=== PATIENT | female | born 1945 | race Caucasian/White ===

== ENCOUNTER 2025-01-05 13:06 | Emergency (ER) | payer MEDICARE, SELFPAY ==
--- OUTSIDE RECORDS SUMMARY | 2025-01-05 13:08 | XMS_ITS | Clinical Summary ---
Author Organization [facility] Address [address] [place] [id number] Care Team Providers Care Wrist Closer Name Role Phone Fran Contreras MD Unavailable Nikole Babcock MD Unavailable + Felton Mg MD Unavailable [phone] Isadora Temple MD Unavailable Nicolasa vailable [facility] Primary Care Provider Unavailabl e Allergies Active Allergy Reactions Criticality Noted Date Comments Atorvastatin Rash 03/19/2013 Possible rash on face? Medications multivitamin (MVI) tabletIndication s:Patellofemoral pain syndrome Take 1 tablet by mouth once daily. 0 10/12/2009 Active Calcium-Cholecal ciferol, D3, (CALCIUM 600 WITH VITAMIN D3) 600 mg(1,500mg) -400 unit capIndications:O steopenia Take 1 Tab by mouth 2 times daily. 0 01/08/2012 Active timoloL maleate (TIMOPTIC) 0.5 % ophthalmic solutionIndicati ons:Primary open angle glaucoma (POAG) of both eyes, mild stage PLACE 1 DROP INTO BOTH EYES ONCE DAILY. TAKE IN THE MORNING. 15 mL 1 03/17/2024 Active latanoprost 0.005 % ophthalmic solutionIndicati ons:Primary open angle glaucoma (POAG) of both eyes, mild stage PLACE 1 DROP INTO BOTH EYES ONCE DAILY IN THE EVENING. 7.5 mL 10/17/2024 Active Active Problems Problem Noted Date Diagnosed Date Primary open angle glaucoma (POAG) of both eyes, moderate stage 12/24/2022 Bilateral pseudophakia 03/20/2021 Pure hypercholesterolemia 12/31/2012 Prediabetes 11/02/2009 Advance Care Plan 08/16/2009 Overview (08/16/2009): Patient has identified Health Care Agent(s): Yes Add Health Care Agents: Yes Health Care Agent(s): Primary Health Care Agent: Juan Thurman Relationship: Secondary Health Care Agent: Cassandra Slaughter Relationship: daughter Conservator: N/A Relationship: Phone: Guardian: N/A Relationship: Phone: Patient has Advanced Care Plan Documents (Health Care Directive, POLST): Yes Advance Care Plan Documents: Health Care Directive completed on 08/16/2009 and scanned into medical record Patient has identified Specific Treatment Preferences: Yes Noted In: Health Care Directive Discussed With: Patient and Health Care Agent Specific Treatment Preferences: a.) No specific limits to treatment preferences identified - assume full treatment. Assessment & Plan (08/16/2009 11:04 AM CDT): Advance Care Planning: Basic Interview Session Advance Care Planning discussion completed with Aleisha Thurman and her Health Care Agent, , Juan Thurman on 08/16/2009 at [facility]. Patient and family provided with: Advance Care Planning Brochure Health Care Directive CPR Fact Sheet Goals and Values: Patient/family identified factors that may influence treatment preferences: Present/past experiences related to illness or : father had heart attack at [facility], was resuscitated, placed on ventilator, was taken off of ventilator, lived 6 weeks in longterm where he . Aleisha's and Juan' family are all local, there are 10 grandchildren whom they enjoy being with very much. Treatment Choices: If Aleisha were suddenly injured and her chances of recovery were 5 out of 100, she WOULD want ongoing life-prolonging treatments such as a ventilator/respirator, feeding tube, etc. Reviewed CPR fact sheet with Aleisha. If she had a sudden event that caused her heart and breathing to stop she WOULD want CPR attempted. Documents Completed During Advance Care Planning Session: Health Care Agents identified. Primary health care agent is Juan; secondary health care agent is daughter, Cassandra Slaughter. Health Care Directive completed and scanned into medical record. Recommendations/Plan: Aleisha was encouraged to continue advance care planning discussions with her health care agents. Aleisha and her health care agents to review Health Care Directive and with her provider at the next office visit. Resources identified during advance care planning session that patient may benefit from are: none at this time. Interviewer: CASSANDRA BOYKIN RN .................... 08/16/2009 11:04 AM 08/16/2009 Screen for colon cancer 02/28/2009 Overview (02/28/2009): Colonoscopy 02/2009 normal repeat in 10 years Osteopenia 10/17/2008 Overview (10/17/2008): Bone density scan- 2008 Other bipolar disorders 10/07/2008 Dermatophytosis of nail 04/10/2006 Unspecified hypothyroidism 07/22/2005 Resolved Problems Problem Noted Date Diagnosed Date Resolved Date Major depressive disorder, r ecurrent episode, unspecified 11/27/2006 10/07/2008 Adjustment disorder with depressed mood 09/01/2006 09/01/2006 DEPRESSION 05/17/2003 04/10/2006 Encounters Date Type Department Care Team Description 01/05/2025 Nurse Triage [facility] [address] [place] [address] Pcp, No Syncope 12/23/2024 2:20 PM CDT Office Visit [facility] [address] [place] [address] Prince Palomo, OD Follow Up (4 Month IOP Ck ) 12/23/2024 Travel 10/15/2024 Refill [facility] [address] [place] [address] Prince Palomo, OD Refill Request (Latanoprost) from Last 3 Months Immunizations Immunization Administration Dates Next Due AMB Influenza, IIV3 (Age >=3 years)(Flu Clinic Only) 02/12/2012,02/22/2011,03/01/2010 Amb Influenza, Inactivated A IIV4 (Age 65+ Years) Preserv Free 02/01/2020 COVID-19 VACCINE SPIKEVAX (M ODERNA 50MCG/0.5ML) 12YO+ PFS 04/01/2024,07/09/2023 COVID-19 vaccine (PackLate.com-Bio NTech 30mcg/0.3mL) 12YO+ BIVALENT PF, MDV 04/01/2022 COVID-19 vaccine (Pfizer-Bio NTech 30mcg/0.3mL) 12YO+ YANET-SUCROSE PF, MDV 08/22/2021 COVID-19 vaccine (Pfizer-Bio NTech 30mcg/0.3mL) PF, MDV 03/07/2021 Influenza, High-dose Inactivated 03/22/2016,03/12,01/18/2014 Influenza, IIV3 (Age 6-35 mos) 02/22/2011 Influenza, IIV3 (Age >=3 years) 02/24/20 13,04/13/2009,03/25/2007,2005 Influenza, Inactivated AIIV4 (Age 65+ Years) Preserv Free 02/14/2023,02/19/2022,02/06/2021 Influenza, Inactivated IIV3 (Age 65+ Years) Preserv Free 04/01/2024,03/02/2019,02/20/2018,2016 Pneumococcal Poly,23-Valent (Pneumovax) 01/08/2012 Pneumococcal conj 13-Valent (Prevnar 13) 03/27/2018 Td (Age >=7 Years) 06/05/1999 Tdap 10/12/2008 Zoster (Zostavax-ZVL, live) 02/13/2012 Family History Medical History Relation Name Comments Cancer-breast Daughter Premenopausal breast cancer Daughter radiation Heart Disease Father Cancer Mother ovarian cancer Other Mother ovarian cancer Genetic Other sister with vannesa ast cancer ~no heart disease , no colon cancer , no osteoporois , Cancer-breast Sister in late 50's. Relation Name Status Comments Daughter Alive Father Maternal Grandfather Maternal Grandmother Mother Other Paternal Grandfather Paternal Grandmother Sister Alive Social History Tobacco Use Types Packs/Day Years Used Date Smoking Tobacco: Former Cigarettes Smokeless Tobacco: Never Tobacco Cessation:Counseling Given: No Comments:quit in 1974 Alcohol Use Standard Drinks/Week Comments Yes 0 (1 standard drink = 0.6 oz pur e alcohol) occassionally PHQ-2 Answer Date Recorded PHQ-2 Score 0 07/12/2018 Financial Resource Strain Answer Date R ecorded Difficulty of Paying Living Expenses Not on file 05/03/2021 Difficulty of Paying Living Expenses Not on file 05/03/2021 Comments No Sex and Gender Information Value Date Recorded Sex Assigned at Not on file Legal Sex Female 5:42 AM AUTOMOTIVE TITLE CLERK Gender Identity Not on file Sexual Orientation Not on file Obstetrics History Para Term AB IAB SAB Ectopic Multiple Livin g Live Births 5 5 4 1 0 0 0 1 5 Date Outcome GA Total Labor Labor//3rd Weight Sex Type Anes PTL Penelope A1 A5 Name Clin Term Term Term Term Last Filed Vital Signs Vital Sign Reading Time Taken Comments Blood Pressure 145/79 01/13/2021 11:22 AM CDT Pulse 98 01/13/2021 11:22 AM CDT Temperature 36.8 C (98.2 F) 01/13/2021 11:22 AM CDT Respiratory Rate 18 01/13/2021 11:22 AM CDT Oxygen Saturation 99% 01/13/2021 11:22 AM CDT Inhaled Oxygen Concentration - - Weight 64 kg (141 lb) 07/11/2020 1:51 PM AUTOMOTIVE TITLE CLERK Height 167.6 cm (5' 6) 05/29/2018 8:25 AM AUTOMOTIVE TITLE CLERK Body Mass Index 22.76 05/29/2018 8:25 AM AUTOMOTIVE TITLE CLERK Plan of Treatment Upcoming Encounters Date Type Department Care Team (Late st Contact Info) Description 04/26/2025 2:30 PM AUTOMOTIVE TITLE CLERK Office Visit [facility] [address] [place] [address] 04/28/2025 2:20 PM AUTOMOTIVE TITLE CLERK Office Visit [facility] [address] [place], [place] [id number] [place] [address] [place] [address] Health Maintenance Due Date Last Done Comments Zoster (shingles) series for age 50+ (2 of 3) 2012 02/13/2012 Medicare Wellness for age 65+ 01/08/2013 01/08/2012, 01/02/2011 Tetanus booster 10/12/2018 10/12/2008, 06/05/1999 RSV vaccine for adults or (1 - 1-dose 75+ series) 2019 BMI (ht and wt on same day) for age 18+ 05/29/2019 05/29/2018, 03/27/2018 Depression screening for age 12+ 06/19/2019 06/19/2018, 05/29/2018, 03/27/2018 COVID-19 vaccine series ( season) 2024 04/01/2024, 07/09/2023, 04/01/2022, Additional history exists Influenza Vaccine (#1) 2025 , 02/14/2023, 02/19/2022, Additional history exists DEXA/DXA scan for age 65+ Completed 10/15/2011, 09/2008 Pneumococcal series for age 50+ Completed 03/27/2018, 01/08/2012 Hepatitis B series for 19+ Aged Out N o longer eligible based on patient's age to complete this topic Procedures Procedure Name Priority Date/Time Associated Diagnosis Comments XR DXA BONE DENSITY 2 SITES AXIAL Routine 10/15/2011 1:47 PM CDT Osteopenia from Last 3 Months or Most Recently Relevant to Health Maintenance Results * XR DEXA BONE DENSITY 2 SITES (10/15/2011 1:47 PM CDT) Anatomical Region Laterality Modality Spine, HIPS, HIPL, HIPR Other Narrative 10/23/2011 7:56 AM CDT Please see scanned document for results of this study.' Procedure Note Abida Weller PA - 10/23/2011 Please see scanned document for results of this study.' us Cassandra Oneill MD DEXA Neli l Result from Last 3 Months or Most Recently Relevant to Health Maintenance Insurance MEDICARE PART B HB ONLY BLUE CROSS MEDICARE ADVANTAGE MR Advance Directives Documents on File Type Date Recorded Patient Advertising Executive Expl anation Healthcare Directive 08/16/2009 Care Teams Wrist Closer Relationship Specialty Start Date End Date [facility] PCP - General 12/17/21 Fran Contreras MD Orthopedics Surgery - Orthopedics 02/23/13 Nikole Babcock MD [address] [place] [address] Dermatology Dermatology 02/23/13 Felton Mg MD [address] [place] [id number] Surgery - Orthopedic 02/23/13 Isadora Temple MD [address] [place] [id number] Ophthalmology Surgery 02/23/13
[2025-01-05 13:11] VITALS: BP 134/71; BP 147/79; PULSE 75; RESP 16; TEMP 36.8; O2SAT 98; BMI 21.5
--- NOTE | 2025-01-05 13:19 | ED.GENADULT ---
HPI - General Adult General Chief complaint: Syncope/Fainted Stated complaint: Fainted, sent by clinic Time Seen by Provider: 01/05/25 13:18 History of Present Illness HPI narrative: Pt reports she fainted around 1100. Pt's heard pt fall. Helped pt up and she fainted again and was unconscious for approx 45 seconds. Did have similar fainting episodes several years ago. Concerned she may have hit head during fall, has a few small abrasions on head/face. Pt states not on blood thinners. Orthostatic BP 's unremarkable in triage. Pt is A&Ox4 in triage, neuros appear intact, gait stable. 79-year-old woman presenting to the emergency department following an episode of fainting. Apparently had been up and fell somewhere in the bathroom striking her face and right head. She does not recall any chest pain or shortness of breath or irregular heartbeats round this time. Apparently had been washing her hair in the kitchen sink. Subsequently got of the bathroom and was combing her hair when she fell and likely passed out. then went to find her and was attempting to get her up and she apparently passed out a for about 45 seconds. No seizure-like activity described. She does have a history of similar events years ago. Apparently also incurred in short order and related to getting in out of the shower. Occurred twice. Evaluation was done on seeing with a an unremarkable EKG per report. Did not have other evaluation done in clinic or ER. She is not complaining of significant headache. Does not feel lightheaded currently. Orthostatics upon triage were unremarkable and without symptoms. No abdominal pain. Related Data Home Medications ?Medication ?Instructions ?Recorded ?Confirmed latanoprost 0.005 % eye drops 1 drp ophthalmic (eye) QPM 01/05/25 01/05/25 timolol maleate 0.5 % eye drops drp ophthalmic (eye) 01/05/25 Allergies Allergy/AdvReac Type Severity Reaction Status Date / Time No Known Drug Allergies Allergy Verified 01/05/25 14:36 Review of Systems Status of ROS: Reports: 6 or more systems reviewed and unremarkable except as noted in History and below PFSH PFS Social History Smoking Status: Former smoker How often do you have a drink containing alcohol: never AUDIT-C Alcohol total score: 0 Non-prescribed substance use: denies use service: No Exam Narrative: Exam Narrative: Pleasant. NAD. Breathing easily. Lungs are clear. Heart in regular rate and rhythm. Extremities are well perfused without edema. She is moving all extremities without difficulty, with good strength. No injury noted to extremities. No pain to palpation over chest or abdomen. Abdomen is soft. Back nontender without deformity. Neck is supple and nontender. Light subcentimeter superficial cut across the bridge of her nose consistent with her eyeglasses. Also light abrasion at the right mormon area. Subtle bruising in this area. No crepitus or step-offs. Large bubble over the dorsum of the right index finger starting at the PIP moving distally. Nontender not inflamed. This level is noted to be present for quite some time. They are interested in potential drainage. Const: Vital Signs, click to edit/add: Vital Signs - 24 hr 01/05/25 13:11 01/05/25 14:00 01/05/25 14:37 Temperature 98.3 F Pulse Rate Pulse Rate [Pulse Oximeter] 75 Respiratory Rate 16 13 23 Blood Pressure Blood Pressure [Ri ght Forearm] 147/79 H Blood Pressure [Ri ght Upper Arm] 134/71 Pulse Oximetry 98 Oxygen Delivery Me thod Room Air 01/05/25 14:38 01/05/25 14:39 Temperature Pulse Rate 71 76 Pulse Rate [Pulse Oximeter] Respiratory Rate 15 12 Blood Pressure 140/70 H Blood Pressure [Ri ght Forearm] Blood Pressure [Ri ght Upper Arm] Pulse Oximetry 95 100 Oxygen Delivery Me thod Documenting provider has reviewed patient's vital signs: yes Course Vital Signs Vital signs: Initial Vital Signs Temperature 98.3 F 01/05/25 13:11 Temperature Source Temporal Artery Scan 01/05/25 13:11 Pulse Rate 75 01/05/25 13:11 Respiratory Rate 16 01/05/25 13:11 Blood Pressure 134/71 01/05/25 13:11 Blood Pressure Mean 92 01/05/25 13:11 Blood Pressure Position Sitting 01/05/25 13:11 Pulse Oximetry 98 01/05/25 13:11 Oxygen Delivery Method Room Air 01/05/25 13:11 Vital Signs Temperature 98.3 F 01/05/25 13:11 Pulse Rate 75 01/05/25 13:11 Respiratory Rate 16 01/05/25 13:11 Blood Pressure 134/71 01/05/25 13:11 Pulse Oximetry 98 01/05/25 13:11 Oxygen Delivery Method Room Air 01/05/25 13:11 Temperature 98.3 F 01/05/25 13:11 Pulse Rate 76 01/05/25 14:39 Respiratory Rate 12 01/05/25 14:39 Blood Pressure 140/70 H 01/05/25 14:38 Pulse Oximetry 100 01/05/25 14:39 Oxygen Delivery Method Room Air 01/05/25 13:11 Medications Administered Medications: Discontinued Medications Generic Name Dose Route Start Last Admin Trade Name Donyq PRN Reason Stop Dose Admin Sodium Chloride 500 mls @ 500 mls/hr 01/05/25 13:35 01/05/25 15:23 0.9 % Sodium Chloride 500 Ml IV 01/05/25 14:34 Infused .Q1H ONE Infusion Medical Decision Making MDM Narrative Medical decision making narrative: Did discuss with Neurology on-call. Suspect more of an arrhythmia but would support head and neck imaging with concerns of potential vascular compromise. I wonder if this might have been more of orthostatic/head positioning/vasovagal type event. Orthostatics look good though today. Will be monitoring on awning frame maker and oximetry. Look for any indication of cardiac injury. Normal saline bolus. Standard labs. White count is mildly elevated. Shortly before departure finally did obtain urinalysis with 1+ ketones. Repeat troponin is negative. EKG as noted below is unremarkable. Did review CT imaging. Radiology over-read of head imaging while in prelim did not show evidence of injury or significant stenotic changes/occlusion. As requested did return to evacuate did what I think is a synovial cyst on her left index finger. Discussed risk and benefit. After cleansing with Betadine placed an 18 gauge and extracted clear sticky gelatinous material ultimately expressed through the puncture site. Wrapped with antibiotic ointment and light pressure dressing. No events on monitoring during time in the emergency department. Ambulating without difficulty. Stable vitals. See patient discharge plan for further discussion Stay well-hydrated. Take care transitions. Please follow-up with your primary care provider this next week if possible. Would consider further cardiac evaluation with possible rhythm monitoring and/or cardiac echo. Change dressing on your finger daily over this next week. Watch for spreading redness after a couple of days, marked increase in pain or swelling with redness. Lab Data Labs: Lab Results 01/05/25 01/05/25 01/05/25 Range/Units 13:35 13:44 13:50 WBC 12.98 H (4.50-11.00) K/uL RBC 4.93 (4.00-5.20) m/uL Hgb 12.8 (12.0-16.0) gm/dL Hct 39.7 (33.0-51.0) % MCV 81 (80-100) fL MCH 26 (26-34) pg MCHC 32 (32-36) gm/dL RDW Coeff of Clare 13.2 (11.5-15.5) % Plt Count 250 (140-440) K/uL Neut % (Auto) 81.4 H (42.0-72.0) % Lymph % (Auto) 9.2 L (20-44) % [place] % (Auto) 8.5 (0.0-11.0) % Eos % (Auto) 0.6 (0.0-7.0) % Baso % (Auto) 0.2 (0.0-3.0) % Neut # (Auto) 10.60 H (1.7-7.0) K/uL Lymph # (Auto) 1.20 (0.90-2.90) K/uL Belmont # (Auto) 1.10 H (0.00-0.90) K/UL Eos # (Auto) 0.10 (0.00-0.50) K/uL Baso # (Auto) 0.00 (0.00-0.30) K/uL Abs Immat Gran (auto) 0.00 (0.00-0.30) K/uL Imm/Tot Granulo (auto) 0.1 % Sodium 135 (135-149) mmol/L Potassium 4.2 (3.6-5.1) mmol/L Chloride 100 (96-114) mmol/L Carbon Dioxide 28 (20-32) mmol/L Anion Gap 7 (7-15) mEq/L BUN 12 (7-30) mg/dL Creatinine 0.8 (0.5-1.5) mg/dL Estimated Creat Clear 42.00 Estimated GFR 74 ml/min Glucose 112 (60-115) mg/dL Calcium 9.8 (8.4-10.6) mg/dL Troponin I < 0.01 (0.01-0.04) ng/mL NT-Pro-B Natriuret Pep 147 (See Note) pg/mL Urine Color (Yellow) Urine Appearance (Clear) Urine pH (5.0-8.5) Ur Specific Hustler (1.000-1.030) Urine Protein (Negative) Urine Glucose (UA) (Negative) Urine Ketones (Negative) Urine Blood (Negative) Urine Nitrite (Negative) Urine Bilirubin (Negative) Urine Urobilinogen (0.2-1.0) Ur Leukocyte Esterase (Negative) Urine RBC (0-2) Urine WBC (0-5) Ur Squamous Epith Cells (None-Few) Urine Bacteria (None) POC Creatinine 0.9 (0.6-1.3) mg/dl POC Troponin I 0.00 L (0.01-0.04) ng/ml 01/05/25 01/05/25 Range/Units 15:57 16:02 WBC (4.50-11.00) K/uL RBC (4.00-5.20) m/uL Hgb (12.0-16.0) gm/dL Hct (33.0-51.0) % MCV (80-100) fL MCH (26-34) pg MCHC (32-36) gm/dL RDW Coeff of Clare (11.5-15.5) % Plt Count (140-440) K/uL Neut % (Auto) (42.0-72.0) % Lymph % (Auto) (20-44) % [place]mont % (Auto) (0.0-11.0) % Eos % (Auto) (0.0-7.0) % Baso % (Auto) (0.0-3.0) % Neut # (Auto) (1.7-7.0) K/uL Lymph # (Auto) (0.90-2.90) K/uL Belmont # (Auto) (0.00-0.90) K/UL Eos # (Auto) (0.00-0.50) K/uL Baso # (Auto) (0.00-0.30) K/uL Abs Immat Gran (auto) (0.00-0.30) K/uL Imm/Tot Granulo (auto) % Sodium (135-149) mmol/L Potassium (3.6-5.1) mmol/L Chloride (96-114) mmol/L Carbon Dioxide (20-32) mmol/L Anion Gap (7-15) mEq/L BUN (7-30) mg/dL Creatinine (0.5-1.5) mg/dL Estimated Creat Clear Estimated GFR ml/min Glucose (60-115) mg/dL Calcium (8.4-10.6) mg/dL Troponin I (0.01-0.04) ng/mL NT-Pro-B Natriuret Pep (See Note) pg/mL Urine Color Yellow (Yellow) Urine Appearance Clear (Clear) Urine pH 7.5 (5.0-8.5) Ur Specific Hustler 1.010 (1.000-1.030) Urine Protein Negative (Negative) Urine Glucose (UA) Negative (Negative) Urine Ketones 1+ A (Negative) Urine Blood Trace-intact A (Negative) Urine Nitrite Negative (Negative) Urine Bilirubin Negative (Negative) Urine Urobilinogen 0.2 (0.2-1.0) Ur Leukocyte Esterase Negative (Negative) Urine RBC 0-2 (0-2) Urine WBC 0-2 (0-5) Ur Squamous Epith Cells None (None-Few) Urine Bacteria None (None) POC Creatinine (0.6-1.3) mg/dl POC Troponin I 0.00 L (0.01-0.04) ng/ml ECG Data Attestation: I personally reviewed and interpreted this ECG as follows: (Sinus rhythm. Rate of 72. Do not appreciate significant ischemic changes.) Discharge Plan Discharge Clinical Impression: Syncope, Closed head injury, Synovial cyst of hand, Contusion Patient Disposition: Home w/ Parent or Adult Condition: Improved Additional Instructions: Stay well-hydrated. Take care transitions. Please follow-up with your primary care provider this next week if possible. Would consider further cardiac evaluation with possible rhythm monitoring and/or cardiac echo. Change dressing on your finger daily over this next week. Watch for spreading redness after a couple of days, marked increase in pain or swelling with redness. Prescriptions: No Action latanoprost 0.005 % drops 1 drp ophthalmic (eye) QPM timolol maleate 0.5 % drops ophthalmic (eye) Follow Up/Referrals: Jan Nina MD [Primary Care Provider, Family Practice] Stand Alone Forms: [employer] Info Instructions
--- NOTE | 2025-01-05 13:43 | CT_ITS ---
Patient: KE LEWIS Facility:?[facility] Patient ID:?[id number] Site Patient ID:?[id number]. Site :?[id number] Study:?CT-Neck Angio Angio WITH 95 CC ISOVUE 370-01/05/2025 2:35:42 PM Ordering Physician:Lyla Almanza Final Report: DATE: 01/05/2025 CLINICAL HISTORY: Patient with syncope. TECHNIQUE: Standard helical CT image acquisition through the head and neck was performed after intravenous contrast bolus enhancement. 2D and 3D MIP images for post- processing were performed and interpreted on an independent workstation and 3D images were permanently archived. COMPARISON: CT same day. FINDINGS: The origins of the great vessels from the aortic arch are patent. The origin of the right vertebral artery is patent. The origin of the left vertebral artery is patent. The common carotid arteries are patent There is no stenosis at the origin of the right internal carotid artery. There is no stenosis at the origin of the left internal carotid artery. The rest of the cervical segments of the internal carotid arteries are patent up to their intracranial segments. The intracranial segments of the internal carotid arteries are patent. The left vertebral artery is dominant. The cervical segments of the vertebral arteries are patent. The intracranial segments of the vertebral arteries are patent. The middle cerebral arteries are normal without aneurysm or proximal occlusion identified. The anterior cerebral arteries are normal without aneurysm or proximal occlusion identified. The anterior communicating artery is well visualized and appears normal. The basilar artery is normal without aneurysm or occlusion. The posterior cerebral arteries are normal without aneurysm or proximal occlusion. There is normal opacification of major intracranial venous structures. The visualized lung apices are unremarkable The thyroid gland is unremarkable. The soft tissues of the neck are unremarkable. There are degenerative changes in the cervical spine. IMPRESSION: Normal CT angiogram of the head and neck. Please note that all CT scans at this facility use dose modulation, iterative reconstruction, and/or weight-based dosing when appropriate to reduce radiation dose to as low as reasonably achievable. Dictated by Marquita Hughes MD @ 01/05/2025 3:54:34 PM Signed by:?Marquita Hughes MD @01/05/2025 3:54:34 PM (Electronic Signature)
--- NOTE | 2025-01-05 13:43 | CRLHL7_ITS ---
For Patients: As a result of the Century Cures Act, medical imaging exams and procedure reports are released immediately into your electronic medical record. You may view this report before your referring provider. If you have questions, please contact your health care provider. INDICATION: Recurrent syncope, abrasion on forehead TECHNIQUE: CT head without contrast. COMPARISON: None. FINDINGS: CSF spaces: Within normal limits for age. Brain parenchyma: The alejo-white differentiation is normal. No sign of mass, hemorrhage, or midline shift. Skull base and calvarium: The visualized paranasal sinuses and mastoid air cells demonstrate no acute or significant findings. The visualized orbits are grossly unremarkable. No skull fractures. IMPRESSION: Unremarkable noncontrast head CT. Please note that all CT scans at this facility use dose modulation, iterative reconstruction, and/or weight-based dosing when appropriate to reduce radiation dose to as low as reasonably achievable. Dictated by Richardson Santos MD @ 01/05/2025 2:47:16 PM (Electronically Signed)
[2025-01-05 14:00] VITALS: RESP 13
[2025-01-05 14:06] LABS: Creatinine, Point-of-Care* 0.9 mg/dl (0.6-1.3)
[2025-01-05 14:10] LABS: Hematocrit 39.7 % (33.0-51.0); Hemoglobin* 12.8 gm/dL (12.0-16.0); Immature Granulocytes Pct Auto 0.1 %; Mean Corpuscular HGB Conc 32 gm/dL (32-36); Mean Corpuscular Hemoglobin 26 pg (26-34); Mean Corpuscular Volume 81 fL (80-100); RDW Coefficient of Variation % 13.2 % (11.5-15.5); Red Blood Count 4.93 m/uL (4.00-5.20); White Blood Count* 12.98 K/uL (4.50-11.00)
[2025-01-05 14:16] LABS: Immature Granulocytes Abs Auto 0.00 K/uL (0.00-0.30); Lymphocytes Absolute Auto 1.20 K/uL (0.90-2.90); Slide Review Reflex No
[2025-01-05 14:16] LABS: Troponin, Point-of-Care* 0.00 ng/ml (0.01-0.04)
[2025-01-05 14:32] LABS: Chloride* 100 mmol/L (96-114); Potassium* 4.2 mmol/L (3.6-5.1); Sodium* 135 mmol/L (135-149)
[2025-01-05 14:35] LABS: Anion Gap 7 mEq/L (7-15); Blood Urea Nitrogen* 12 mg/dL (7-30); Carbon Dioxide* 28 mmol/L (20-32); Creatinine* 0.8 mg/dL (0.5-1.5); Est. Creatinine Clearance* 42.00; Estimated Glomerular Filt Rate 74 ml/min
[2025-01-05 14:36] LABS: Calcium* 9.8 mg/dL (8.4-10.6); Glucose* 112 mg/dL (60-115)
[2025-01-05 14:37] VITALS: RESP 23
[2025-01-05 14:38] VITALS: BP 140/70; PULSE 71; RESP 15; O2SAT 95
[2025-01-05 14:39] VITALS: PULSE 76; RESP 12; O2SAT 100
[2025-01-05] MEDS: 0.9 % SODIUM CHLORIDE 500 ML 500 ML IV (14:41)
[2025-01-05 15:11] LABS: NT Pro B Type NatriureticPept* 147 pg/mL (See Note)
[2025-01-05 16:19] LABS: Appearance Urine Clear (Clear)
[2025-01-05 17:01] LABS: Troponin, Point-of-Care* 0.00 ng/ml (0.01-0.04)
== END 2025-01-05 17:24 | disposition home or self-care (01) ==
PROVIDERS: Emergency Provider Family Medicine; PCP Family Medicine
DX: R55 Syncope and collapse (principal); S09.90XA Unspecified injury of head, initial encounter; M71.342 Other bursal cyst, left hand
CPT/HCPCS: 10060; 36415; 70450; 70496; 70498; 80048; 81001; 82565; 83880; 84484; 85025; 94761; 96360; 99284; J7030; Q9967